=== PATIENT | male | born 1955 | race Caucasian/White ===

== ENCOUNTER 2020-01-18 09:54 | Emergency (ER) | payer BC, OTHER ==
[~2020-01-18] VITALS: Ht 167.6 cm; Wt 100.0 kg
[2020-01-18] MEDS ORDERED: ketorolac trometh. 30mg/ml inj. IM ONE (11:10)
[2020-01-18] MEDS ORDERED: predniSONE 20 mg tablet PO ONE (11:10)
[2020-01-18] MEDS ORDERED: diazepam 5mg tablet PO ONE (11:10)
[2020-01-18] MEDS ORDERED: DIAZ5TAB PO (11:14)
[2020-01-18] MEDS ORDERED: PRED20TA PO (11:14)
[2020-01-18 11:45] VITALS: BP 109/60
== END 2020-01-18 12:13 | disposition home or self-care (01) ==
LOC: ER 09:54
DX: S39.012A Strain of muscle, fascia and tendon of lower back, initial encounter (principal); M54.41 Lumbago with sciatica, right side; M79.604 Pain in right leg; G89.29 Other chronic pain; F12.90 Cannabis use, unspecified, uncomplicated; Z79.899 Other long term (current) drug therapy; X58.XXXA Exposure to other specified factors, initial encounter; Y93.89 Activity, other specified; Y92.89 Other specified places as the place of occurrence of the external cause; Y99.8 Other external cause status
CPT/HCPCS: 96372; 99283; J1885; J7512

== ENCOUNTER 2022-04-02 03:40 | Emergency (ER) | payer MEDICARE, BC ==
[~2022-04-02] VITALS: Ht 167.6 cm; Wt 240.0 kg
[~2022-04-02 03:40] MED LIST: DIAZ5TAB PO
[2022-04-02 06:08] VITALS: BP 139/93
[2022-04-02] MEDS ORDERED: HYDR-3965 PO ×2 (06:09)
[2022-04-02] MEDS ORDERED: HYDR-3972 PO (10:19)
== END 2022-04-02 06:18 | disposition home or self-care (01) ==
LOC: ER 03:40
DX: M79.602 Pain in left arm (principal); G89.29 Other chronic pain; M54.9 Dorsalgia, unspecified; F12.10 Cannabis abuse, uncomplicated; Z79.899 Other long term (current) drug therapy
CPT/HCPCS: 36415; 84484; 93005; 99284

== ENCOUNTER 2024-07-10 18:13 | Emergency (ER) | payer MEDICARE, BC ==
[~2024-07-10] VITALS: Ht 167.6 cm; Wt 85.6 kg
[2024-07-10 18:45] VITALS: BP 143/88; PULSE 87; RESP 15; O2SAT 97
[2024-07-10] MEDS ORDERED: CYCL-1 PO (20:10)
[2024-07-10] MEDS ORDERED: HYDR-3965 PO (20:10)
[2024-07-10] MEDS ORDERED: PRED20TA PO (20:10)
[2024-07-10] MEDS: cyclobenzaprine 10mg tablet PO ONE (20:12)
[2024-07-10 20:15] VITALS: TEMP 97.8
== END 2024-07-10 20:19 | disposition home or self-care (01) ==
LOC: ER 18:13
DX: M43.6 Torticollis (principal); F12.90 Cannabis use, unspecified, uncomplicated
CPT/HCPCS: 99283